=== PATIENT | female | born 1955 | race Caucasian/White ===

== ENCOUNTER 2016-11-06 07:15 | Emergency (ER) | payer OTHER ==
[~2016-11-06] VITALS: Ht 167.6 cm; Wt 83.2 kg
[~2016-11-06 07:15] MED LIST: ACETAMINOPHEN500 MG PO; ADVAIR 250/501 DISK IH; ASPIR 8181 M1 PO; ASPIRIN E.C.81 M1 PO; AUGMENTIN875 MG PO; CEFTIN500 MG PO; CELEXA10 MG PO; CELEXA40 MG PO; CLARITIN,ALAVAR10 MG PO; ERGOCALCIF50000 UNIT PO; FISH OIL 1,0001 EAC7 PO; LEVAQUIN750 MG PO; LEVOFLOXACIN500 MG PO; LIPITOR20 MG PO; LOPRESSOR25 MG PO; LOVASTATIN20 MG PO; METOPROLOL SUCC25 MG PO; MEVACOR10 MG PO; MOBIC15 MG PO; NEURONTIN100 MG PO; PREDNISONE10 MG PO; PROAIR HFA8.5 GM IH; PriLOSEC PO; SINGULAIR10 MG PO; Singulair PO; Tums PO; ULTRAM50 MG PO; celeXA PO
[2016-11-06 08:01] LABS: HEMATOCRIT 42.1 % (36.0-46.0); MCH 31.2 PG (29.0-34.0); MCHC 34.7 G/DL (30.0-36.0); MEAN PLAT.VOLUME 10.9 uM^3 (9.5-12.4); PLATELET COUNT 156 K/uL (156-360); RBC DIS.WIDTH-CV 12.6 % (11.8-14.6); RBC DIS.WIDTH-SD 40.7 % (39-53); RED BLOOD COUNT 4.68 M/uL (3.80-5.20); WHITE BLOOD COUNT 7.2 K/uL (4.1-10.2)
[2016-11-06 08:11] LABS: CHLORIDE 108 mEq/L (99-109); POTASSIUM 4.3 mEq/L (3.7-5.4); SODIUM 138 mEq/L (136-147)
[2016-11-06 08:13] LABS: GLUCOSE 111 mg/dL (70-99)
[2016-11-06 08:15] LABS: ANION GAP 11 MEQ/L (2-14); TOTAL BILIRUBIN 0.7 mg/dL (0.0-1.0)
[2016-11-06 08:17] LABS: ALKALINE PHOSPHATASE 70 IU/L (3-129); GFR ESTIMATE (CALCULATED) > 59 mL/min/
[2016-11-06 08:18] LABS: UREA NITROGEN (BUN) 16 mg/dL (9-23)
[2016-11-06] MEDS ORDERED: ZOFRAN4 MG PO (14:08)
[2016-11-06 14:51] LABS: C DIFF TOXIN NEGATIVE (NEGATIVE)
[2016-11-06 14:52] LABS: PROBE CHECK PASS; SPECIMEN PROCESSING CONTROL PASS
[2016-11-06 15:42] VITALS: BP 111/60
== END 2016-11-06 15:44 | disposition home or self-care (01) ==
LOC: EME 07:15
PROVIDERS: Emergency Medicine
DX: R10.9 Unspecified abdominal pain (principal); R11.2 Nausea with vomiting, unspecified; R19.7 Diarrhea, unspecified; J45.909 Unspecified asthma, uncomplicated; E78.5 Hyperlipidemia, unspecified; I10 Essential (primary) hypertension
CPT/HCPCS: 74176; 80053; 81003; 85027; 87493; 93005; 99281; 99284; J2405; J7030

== ENCOUNTER → 2017-02-20 | Outpatient (CLI) | payer OTHER ==
[~2017-02-20] VITALS: Ht 165.1 cm; Wt 81.7 kg
[~2017-02-20] MED LIST changes: +EXCEDRIN EXTRA1 EACH PO; +KLONOPIN0.5 M1 PO; +MEVACOR20 MG PO; +PRILOSEC20 MG PO; +ZOFRAN4 MG PO
== END | disposition home or self-care (01) ==
LOC: AMB 09:20
PROC: 0DBL8ZX Excision of Transverse Colon, Via Natural or Artificial Opening Endoscopic, Diagnostic (ICD-10-PCS; principal; 2017-02-20)
PROC: 0DBN8ZX Excision of Sigmoid Colon, Via Natural or Artificial Opening Endoscopic, Diagnostic (ICD-10-PCS; 2017-02-20)
DX: Z12.11 Encounter for screening for malignant neoplasm of colon (principal); D12.4 Benign neoplasm of descending colon; D12.3 Benign neoplasm of transverse colon; K64.8 Other hemorrhoids; I10 Essential (primary) hypertension; K21.9 Gastro-esophageal reflux disease without esophagitis; J45.909 Unspecified asthma, uncomplicated; Z88.0 Allergy status to penicillin; Z79.82 Long term (current) use of aspirin
CPT/HCPCS: 88305; J2250; J3010

== ENCOUNTER 2017-05-01 13:51 | Emergency (ER) | payer OTHER ==
[~2017-05-01] VITALS: Ht 167.6 cm; Wt 82.0 kg
[2017-05-01 14:46] LABS: MCH 30.7 PG (29.0-34.0); MCHC 33.8 G/DL (30.0-36.0); MCV 90.9 FL (83-99); MEAN PLAT.VOLUME 10.5 uM^3 (9.5-12.4); PLATELET COUNT 179 K/uL (156-360); RBC DIS.WIDTH-CV 11.9 % (11.8-14.6); RBC DIS.WIDTH-SD 39.6 % (39-53); RED BLOOD COUNT 4.62 M/uL (3.80-5.20)
[2017-05-01 14:59] LABS: INTER. NORMALIZED RATIO 1.1; PTT 36.3 (25-32)
[2017-05-01 15:10] LABS: TROP-I INTERPRETATION NEGATIVE; TROPONIN-I < 0.01 ng/mL (0.0-0.30)
[2017-05-01 16:04] LABS: ANION GAP 13 MEQ/L (2-14); CHLORIDE 109 MEQ/L (99-109); GFR ESTIMATE (CALCULATED) > 59 mL/min/; GLUCOSE 107 mg/dL (70-99); POTASSIUM 3.7 MEQ/L (3.7-5.4); SAMPLE HEMOLYSIS CHECK 0; SAMPLE ICTERIC CHECK 0; SAMPLE LIPEMIA CHECK 0; SODIUM 142 MEQ/L (136-147); UREA NITROGEN (BUN) 12 mg/dL (9-23)
[2017-05-01] MEDS ORDERED: PREDNISONE50 MG PO (18:28)
[2017-05-01] MEDS ORDERED: PROAIR HFA8.5 GM IH (18:38)
[2017-05-01 18:41] VITALS: BP 132/79
== END 2017-05-01 18:44 | disposition home or self-care (01) ==
LOC: EME 13:51
PROVIDERS: Emergency Medicine
DX: J44.9 Chronic obstructive pulmonary disease, unspecified (principal); E78.5 Hyperlipidemia, unspecified
CPT/HCPCS: 71020; 71275; 80048; 84484; 85027; 85610; 85730; 93005; 94640; 99281; 99285; J1200; J7512

== ENCOUNTER 2017-11-05 17:49 | Emergency (ER) | payer OTHER ==
[~2017-11-05] VITALS: Ht 167.6 cm; Wt 84.2 kg
[~2017-11-05 17:49] MED LIST changes: +PREDNISONE50 MG PO
[2017-11-05 20:01] LABS: APPEARANCE CLEAR ((CLEAR)); BILIRUBIN NEGATIVE; BLOOD LARGE; COLOR STRAW ((YELLOW)); GLUCOSE (STRIP) NEGATIVE; KETONES NEGATIVE; LEUKOCYTES MODERATE; NITRITE NEGATIVE; PROTEIN (STRIP) NEGATIVE; SPECIFIC GRAVITY 1.004 (1.000-1.030); UROBILINOGEN 0.2 MG/DL (0.2-1.0)
[2017-11-05 20:12] LABS: BACTERIA RARE /HPF; EPITHELIAL CELLS 1+ /HPF; MUCUS TRACE /LPF; UCUL ADDED? YES
[2017-11-05 21:03] LABS: HEMATOCRIT 41.1 % (36.0-46.0); HEMOGLOBIN 14.1 G/DL (11.9-15.5); MCH 31.6 PG (29.0-34.0); MCHC 34.3 G/DL (30.0-36.0); MCV 92.2 FL (83-99); PLATELET COUNT 181 K/uL (156-360); RBC DIS.WIDTH-CV 12.1 % (11.8-14.6); RED BLOOD COUNT 4.46 M/uL (3.80-5.20); WHITE BLOOD COUNT 6.5 K/uL (4.1-10.2)
[2017-11-05 21:25] LABS: ALBUMIN 4.4 g/dL (3.2-4.8); CHLORIDE 106 mEq/L (99-109); POTASSIUM 4.4 mEq/L (3.7-5.4); SODIUM 141 mEq/L (136-147)
[2017-11-05 21:27] LABS: GLUCOSE 97 mg/dL (70-99); TOTAL PROTEIN 6.9 g/dL (6.4-8.3)
[2017-11-05 21:29] LABS: TOTAL BILIRUBIN 0.3 mg/dL (0.0-1.0)
[2017-11-05 21:31] LABS: ALKALINE PHOSPHATASE 73 IU/L (3-129); CREATININE 0.9 mg/dL (0.6-1.3); GFR ESTIMATE (CALCULATED) > 59 mL/min/
[2017-11-05 21:32] LABS: UREA NITROGEN (BUN) 10 mg/dL (9-23)
[2017-11-05 21:33] LABS: AST (GOT) 19 IU/L (2-34); DIRECT BILIRUBIN 0.1 mg/dL (0.0-0.3)
[2017-11-05 21:34] LABS: ALT (GPT) 17 IU/L (3-49)
[2017-11-05 21:44] VITALS: BP 131/86
== END 2017-11-05 21:50 | disposition home or self-care (01) ==
LOC: EME 17:49
PROVIDERS: Physician Assistant
DX: I86.8 Varicose veins of other specified sites (principal); N93.9 Abnormal uterine and vaginal bleeding, unspecified; Z90.710 Acquired absence of both cervix and uterus; J45.909 Unspecified asthma, uncomplicated; E78.5 Hyperlipidemia, unspecified; F32.9 Major depressive disorder, single episode, unspecified; Z88.0 Allergy status to penicillin; Z88.8 Allergy status to other drugs, medicaments and biological substances; Z91.041 Radiographic dye allergy status
CPT/HCPCS: 80048; 80076; 81003; 85027; 87086; 99281; 99284